=== PATIENT | female | born 1985 | race Caucasian/White ===

== ENCOUNTER 2017-07-06 15:44 | Outpatient (CLI) | END 2017-07-06 20:25 | disposition home or self-care (01) ==

== ENCOUNTER 2017-07-12 15:32 | Outpatient (CLI) | END 2017-07-12 17:37 | disposition home or self-care (01) ==

== ENCOUNTER 2017-08-01 11:07 | Emergency (ER) | END 2017-08-01 14:30 | disposition home or self-care (01) ==